=== PATIENT | male | born 1965 | race Caucasian/White ===

== ENCOUNTER → 2025-03-16 | Outpatient (CLI) | payer BC ==
[2025-03-17 09:14] LABS: Color,BF Yellow
[2025-03-17 09:15] LABS: Appearance,BF Cloudy; Nucleated Cells, Body Fluid 39 /uL; RBC, Body Fluid 139 /uL
[2025-03-17 18:31] LABS: Synovial Fld Crystals None Seen (None Seen)
== END | disposition home or self-care (01) ==
LOC: LABPRL 10:04
PROVIDERS: ATTEND Orthopaedic Surgery
DX: M25.562 Pain in left knee (principal); M25.462 Effusion, left knee; T84.023A Instability of internal left knee prosthesis, initial encounter; T84.84XA Pain due to internal orthopedic prosthetic devices, implants and grafts, initial encounter; Z96.652 Presence of left artificial knee joint
CPT/HCPCS: 85379; 85652; 86140; 87070; 87205; 89050; 89060